=== PATIENT | female | born 1960 | race Caucasian/White ===

== ENCOUNTER 2021-02-14 12:30 | Inpatient (IN) | payer OTHER ==
[~2021-02-14] VITALS: Ht 165.1 cm; Wt 72.6 kg
[2021-02-14 13:04] LABS: HEMOGLOBIN 8.3 gm/dl (12.3-15.3); RED BLOOD COUNT 3.26 M/UL (4.00-5.10); WHITE BLOOD COUNT 13.8 K/UL (4.5-11.0)
[2021-02-14] MEDS ORDERED: DICLOFONO2.5 GM TP (19:58)
[2021-02-14] MEDS ORDERED: ROXICODONE15 MG PO (20:01)
[2021-02-15 01:29] LABS: HEMOGLOBIN 7.8 gm/dl (12.3-15.3); RED BLOOD COUNT 3.05 M/UL (4.00-5.10)
[2021-02-15 01:44] LABS: BUN/CREATININE RATIO 13 (0-10)
--- NOTE | 2021-02-15 16:05 | NUR ---
PATIENT LEFT AMA AT 1600. MD AWARE. PATIENT STATED SHE HAD TO GO, SHE WAS GOING TO MISS APPOINTMENTS BY BEING HERE. RISK VS BENIFITS EXPLAINED. PATIENT STATED SHE DIDN'T CARE SHE HAD TO GO[facility] STATED IM SORRY BUT WHEN SHE'S READY TO GO SHE'S READY TO GO.
== END 2021-02-15 15:53 | disposition left against medical advice (07) | DRG 871 ==
LOC: ER1 12:30 → MED SURG 4 16:55 → CDU 16:55 → MED SURG 4 19:46
PROVIDERS: Emergency Medicine; Physician Assistant Medical; ADMIT Internal Medicine
DX: A41.9 Sepsis, unspecified organism (principal); J18.9 Pneumonia, unspecified organism; J96.01 Acute respiratory failure with hypoxia; N30.00 Acute cystitis without hematuria; C34.90 Malignant neoplasm of unspecified part of unspecified bronchus or lung; J44.1 Chronic obstructive pulmonary disease with (acute) exacerbation; J44.0 Chronic obstructive pulmonary disease with (acute) lower respiratory infection; R91.8 Other nonspecific abnormal finding of lung field; F15.10 Other stimulant abuse, uncomplicated; D64.9 Anemia, unspecified; I10 Essential (primary) hypertension; Z20.822 Contact with and (suspected) exposure to COVID-19; F17.210 Nicotine dependence, cigarettes, uncomplicated; Z89.511 Acquired absence of right leg below knee; Z82.49 Family history of ischemic heart disease and other diseases of the circulatory system; Z88.2 Allergy status to sulfonamides
CPT/HCPCS: 0240U; 36415; 71045; 80048; 80053; 80307; 81001; 82140; 82550; 82553; 83605; 83690; 83735; 84484; 85025; 85027; 86140; 87040; 93005; 94640; 94664; 96374; 99285; J0456; J0696; J1630; J1650; J7030